=== PATIENT | female | born 1985 | race African-American/Black ===

== ENCOUNTER 2018-03-25 19:23 | Emergency (ER) | payer SELFPAY ==
[2018-03-25] MEDS: LIDOCAINE WITH 8.4% SOD BICARB 3 ML DISP.SYRIN. INJ ×2 (19:57→20:15)
== END 2018-03-25 20:39 | disposition home or self-care (01) ==
LOC: ER 19:23
DX: L02.412 Cutaneous abscess of left axilla (principal)
CPT/HCPCS: 10060; 99283

== ENCOUNTER 2018-05-18 14:00 | Emergency (ER) | payer OTHER ==
[~2018-05-18] VITALS: Ht 165.1 cm; Wt 115.2 kg
[~2018-05-18 14:00] MED LIST: CEPH500C PO; HYDR-971 PO; SULF1TAB24 PO
[2018-05-18 15:33] VITALS: BP 113/75
[2018-05-18] MEDS ORDERED: LIDOCAINE WITH 8.4% SOD BICARB 3 ML DISP.SYRIN. INJ ONE (15:45)
[2018-05-18] MEDS ORDERED: IBUPROFEN 800 MG TABLET. PO ONE (15:45)
[2018-05-18] MEDS ORDERED: HYDR-971 PO (16:01)
[2018-05-18] MEDS ORDERED: SULF1TAB24 PO (16:01)
[2018-05-18] MEDS ORDERED: IBUP-1007 PO (16:01)
--- NOTE | 2018-05-18 16:01 | PHYS DOC ---
Past Medical History Past Medical History: No Pertinent History Past Surgical History: Alcohol Use: None Drug Use: None Adult General Chief Complaint Chief Complaint: ABSCESS HPI HPI Patient is a 32 year old Female who presents with right axilla abscess 4 days. Patient denies any fever. Patient rates her pain a 7 out of 10 and states it is burning and aching. Review of Systems Review of Systems Constitutional: Denies fever or chills [] Eyes: Denies change in visual acuity, redness, or eye pain [] HENT: Denies nasal congestion or sore throat [] Respiratory: Denies cough or shortness of breath [] Cardiovascular: No additional information not addressed in HPI [] GI: Denies abdominal pain, nausea, vomiting, bloody stools or diarrhea [] : Denies dysuria or hematuria [] Musculoskeletal: Denies back pain or joint pain [] Integument: Denies rash or skin lesions. Right axilla abscess with burning and pain. [] Neurologic: Denies headache, focal weakness or sensory changes [] Endocrine: Denies polyuria or polydipsia [] All other systems were reviewed and found to be within normal limits, except as documented in this note. Current Medications Current Medications Current Medications Medications (Trade) Dose Ordered Sig/Angela Start Time Stop Time Status Last Admin Dose Admin Ibuprofen (Motrin) 800 mg 1X ONCE 05/18/18 15:45 05/18/18 15:46 DC 05/18/18 16:10 800 MG Lidocaine/Sodium Bicarbonate (Buffered Lidocaine 1%) 3 ml 1X ONCE 05/18/18 15:45 05/18/18 15:46 DC 05/18/18 16:10 3 ML Allergies Allergies Allergies Coded Allergies Type Severity Reaction Last Updated Verified No Known Drug Allergies 03/25/18 No Physical Exam Physical Exam Constitutional: Well developed, well nourished, no acute distress, non-toxic appearance. [] HENT: Normocephalic, atraumatic, bilateral external ears normal, oropharynx moist, no oral exudates, nose normal. [] Eyes: PERRLA, EOMI, conjunctiva normal, no discharge. [] Neck: Normal range of motion, no tenderness, supple, no stridor. [] Cardiovascular:Heart rate regular rhythm, no murmur [] Lungs & Thorax: Bilateral breath sounds clear to auscultation [] Abdomen: Bowel sounds normal, soft, no tenderness, no masses, no pulsatile masses. [] Skin: Warm, dry, Right nondraining, tender, erythemas, axilla abscess, no rash. [] Back: No tenderness, no CVA tenderness. [] Extremities: No tenderness, no cyanosis, no clubbing, ROM intact, no edema. [] Neurologic: Alert and oriented X 3, normal motor function, normal sensory function, no focal deficits noted. [] Psychologic: Affect normal, judgement normal, mood normal. [] Current Patient Data Vital Signs Vital Signs Date Time Temp Pulse Resp B/P (MAP) Pulse Ox O2 Delivery O2 Flow Rate FiO2 05/18/18 15:33 98.7 84 19 113/75 (88) 96 Room Air 98.7 EKG EKG [] Radiology/Procedures Radiology/Procedures [] Course & Med Decision Making Course & Med Decision Making Patient is a 32 year old Female who presents with a nondraining right axilla abscess 4 days. Patient denies any fever. Patient rates her pain a 7 out of 10 and states it is burning and aching. Patient has a quarter-sized elevated abscess that is not hot to touch but with some redness and tenderness to palpation. She is only been taking ibuprofen for pain. Patient states she has not yet taken anything for pain today. I offered the patient [place] for pain and she stated she does not like pain medications and states she would only like ibuprofen. Patient states that a couple months ago she was here for a left axilla abscess. It is hard for patient to raise her right arm due to pain in her axilla. Patient is afebrile. Patient's denies any nausea or vomiting or body aches. Patient denies any fevers at home. Patient alert and oriented. Patient is given 800 mg ibuprofen in the ED. Patient will be sent home with a prescription for Bactrim, [place] and ibuprofen. Patient is told she needs to follow up either with the primary care or back in the ED for a wound check within 48 hours. With I&D a large amount of Purulent fluid was drained. Patient tolerated well. Abscess Incision and Drainage with irrigation by me: Location: Right axilla Anesthesia: Local 1% Lidocaine Technique: Irrigated. Disrupted loculations w/ instrumentation Packing: None Complications: Neurovascularly intact post procedure 48 hour wound check. Scar minimization instructions given. ED Ultrasound: Abscess localized by me using concurrent ultrasound guidance and assessment of the anatomy. Real time image archived in the medical record confirms anatomy. Silvio Disclaimer Silvio Disclaimer This electronic medical record was generated, in whole or in part, using a voice recognition dictation system. Departure Departure Impression: Primary Impression: Abscess Disposition: HOME, SELF-CARE Condition: STABLE Referrals: NO PCP (PCP) Patient Instructions: Abscess, Abscess, Care After Additional Instructions: Follow up with PCP or the ED for wound check in 48 hours. Take Ibuprofen and Antibiotics as prescribed. Scripts Hydrocodone/Apap 5-325 (NORCO 5-325 TABLET) 1 Each Tablet 1 TAB PO PRN Q6HRS PRN for PAIN, #5 TAB 0 Refills Prov: NEIL FERRER CHAINSTITCH ELASTIC ATTACHER 05/18/18 Ibuprofen (IBUPROFEN) 600 Mg Tablet 600 MG PO PRN Q6HRS PRN for INFLAMMATION, #25 TAB Prov: NEIL FERRER CHAINSTITCH ELASTIC ATTACHER 05/18/18 Sulfamethoxazole/Trimethoprim (BACTRIM DS TABLET) 1 Each Tablet 1 TAB PO BID, #20 TAB Prov: NEIL FERRER CHAINSTITCH ELASTIC ATTACHER 05/18/18 NEIL FERRER CHAINSTITCH ELASTIC ATTACHER May 18, 2018 16:01
[2018-05-18] MEDS ORDERED: HYDROcodone/APAP 5/325MG 1 TAB TABLET PO ONE (16:45)
== END 2018-05-18 17:06 | disposition home or self-care (01) ==
LOC: ER 14:00
DX: L02.412 Cutaneous abscess of left axilla (principal)
CPT/HCPCS: 10061; 99284

== ENCOUNTER 2018-08-08 11:29 | Emergency (ER) | payer OTHER ==
[~2018-08-08] VITALS: Ht 165.1 cm; Wt 117.9 kg
[~2018-08-08 11:29] MED LIST changes: +HYDR-3164 PO; -HYDR-971 PO; +IBUP-1007 PO
[2018-08-08 11:57] LABS: BILIRUBIN,URINE NEGATIVE (NEG); CLARITY,URINE CLEAR; COLOR,URINE YELLOW; NITRITE,URINE NEGATIVE (NEG); PROTEIN,URINE NEGATIVE (NEG-TRACE)
[2018-08-08 12:05] LABS: U PREG PATIENT NEGATIVE (NEG)
--- NOTE | 2018-08-08 12:11 | PHYS DOC ---
Past Medical History Past Medical History: No Pertinent History Past Surgical History: Alcohol Use: None Drug Use: None Adult General Chief Complaint Chief Complaint: NAUSEA/VOMITING/DIARRHA HPI HPI Patient is a 33 year old female who presents with complaints of middle lower abdominal pain, nausea and vomiting starting yesterday. LMP was 06/18, unsure if she is . Denies fever, chills, urinary symptoms, diarrhea, flank pain, low back pain, vaginal discharge odor or itching. Denies previous abdominal surgeries. Review of Systems Review of Systems Constitutional: Denies fever or chills [] Eyes: Denies change in visual acuity, redness, or eye pain [] HENT: Denies nasal congestion or sore throat [] Respiratory: Denies cough or shortness of breath [] Cardiovascular: No additional information not addressed in HPI [] GI: Denies bloody stools or diarrhea [] : Denies dysuria or hematuria [] Musculoskeletal: Denies back pain or joint pain [] Integument: Denies rash or skin lesions [] Neurologic: Denies headache, focal weakness or sensory changes [] Endocrine: Denies polyuria or polydipsia [] All other systems were reviewed and found to be within normal limits, except as documented in this note. Current Medications Current Medications Current Medications Medications (Trade) Dose Ordered Sig/Angela Start Time Stop Time Status Last Admin Dose Admin Ondansetron HCl (Zofran) 4 mg 1X ONCE 08/08/18 13:15 08/08/18 13:16 DC 08/08/18 13:10 4 MG Sodium Chloride 1,000 ml @ 1,000 mls/hr 1X ONCE 08/08/18 12:15 08/08/18 13:14 DC 08/08/18 13:09 1,000 MLS/HR Allergies Allergies Allergies Coded Allergies Type Severity Reaction Last Updated Verified No Known Drug Allergies 03/25/18 No Physical Exam Physical Exam Constitutional: Well developed, well nourished, no acute distress, non-toxic appearance. [] HENT: Normocephalic, atraumatic, bilateral external ears normal, oropharynx moist, no oral exudates, nose normal. [] Eyes: PERRLA, EOMI, conjunctiva normal, no discharge. [] Neck: Normal range of motion, no tenderness, supple, no stridor. [] Cardiovascular:Heart rate regular rhythm, no murmur [] Lungs & Thorax: Bilateral breath sounds clear to auscultation [] Abdomen: Bowel sounds normal, soft, middle lower quad abdominal tenderness, no masses, no pulsatile masses. [] Skin: Warm, dry, no erythema, no rash. [] Back: No tenderness, no CVA tenderness. [] Extremities: No tenderness, no cyanosis, no clubbing, ROM intact, no edema. [] Neurologic: Alert and oriented X 3, normal motor function, normal sensory function, no focal deficits noted. [] Psychologic: Affect normal, judgement normal, mood normal. [] Current Patient Data Vital Signs Vital Signs Date Time Temp Pulse Resp B/P (MAP) Pulse Ox O2 Delivery O2 Flow Rate FiO2 08/08/18 12:00 98.9 100 18 111/57 (75) 99 Room Air 98.9 Lab Values Laboratory Tests Test 08/08/18 11:35 08/08/18 12:30 Urine Collection Type Unknown Urine Color Yellow Urine Clarity Clear Urine pH 6.0 Urine Specific [place] >=1.030 Urine Protein Negative mg/dL (NEG-TRACE) Urine Glucose (UA) Negative mg/dL (NEG) Urine Ketones (Stick) Negative mg/dL (NEG) Urine Blood Negative (NEG) Urine Nitrite Negative (NEG) Urine Bilirubin Negative (NEG) Urine Urobilinogen Dipstick 1.0 mg/dL (0.2 mg/dL) Urine Leukocyte Esterase Negative (NEG) Urine RBC Occ /HPF (0-2) Urine WBC Occ /HPF (0-4) Urine Squamous Epithelial Cells Occ /LPF Urine Bacteria 0 /HPF (0-FEW) Urine Mucus Slight /LPF Urine Test Negative (NEG) White Blood Count 6.7 x10^3/uL (4.0-11.0) Red Blood Count 4.16 x10^6/uL (3.50-5.40) Hemoglobin 13.0 g/dL (12.0-15.5) Hematocrit 38.5 % (36.0-47.0) Mean Corpuscular Volume 93 fL (79-100) Mean Corpuscular Hemoglobin 31 pg (25-35) Mean Corpuscular Hemoglobin Concent 34 g/dL (31-37) Red Cell Distribution Width 14.0 % (11.5-14.5) Platelet Count 211 x10^3/uL (140-400) Neutrophils (%) (Auto) 67 % (31-73) Lymphocytes (%) (Auto) 25 % (24-48) Monocytes (%) (Auto) 5 % (0-9) Eosinophils (%) (Auto) 2 % (0-3) Basophils (%) (Auto) 1 % (0-3) Neutrophils # (Auto) 4.5 x10^3uL (1.8-7.7) Lymphocytes # (Auto) 1.7 x10^3/uL (1.0-4.8) Monocytes # (Auto) 0.3 x10^3/uL (0.0-1.1) Eosinophils # (Auto) 0.1 x10^3/uL (0.0-0.7) Basophils # (Auto) 0.1 x10^3/uL (0.0-0.2) Sodium Level 141 mmol/L (136-145) Potassium Level 3.8 mmol/L (3.5-5.1) Chloride Level 106 mmol/L (98-107) Carbon Dioxide Level 25 mmol/L (21-32) Anion Gap 10 (6-14) Blood Urea Nitrogen 14 mg/dL (7-20) Creatinine 0.9 mg/dL (0.6-1.0) Estimated GFR (Cockcroft-Gault) 86.2 BUN/Creatinine Ratio 16 (6-20) Glucose Level 95 mg/dL (70-99) Calcium Level 9.0 mg/dL (8.5-10.1) Total Bilirubin 0.2 mg/dL (0.2-1.0) Aspartate Amino Transferase (AST) 17 U/L (15-37) Alanine Aminotransferase (ALT) 34 U/L (14-59) Alkaline Phosphatase 68 U/L (46-116) Total Protein 7.6 g/dL (6.4-8.2) Albumin 3.4 g/dL (3.4-5.0) Albumin/Globulin Ratio 0.8 (1.0-1.7) L Laboratory Tests 08/08/18 12:30 Laboratory Tests 08/08/18 12:30 EKG EKG [] Radiology/Procedures Radiology/Procedures [] Course & Med Decision Making Course & Med Decision Making Pertinent Labs and Imaging studies reviewed. (See chart for details) Reviewed negative physical examination and lab results with pt. She is instructed to use Zofran as needed for nausea, increase water intake. Follow up with PCP in 3-5 days if not feeling better. Silvio Disclaimer Andreaon Disclaimer This electronic medical record was generated, in whole or in part, using a voice recognition dictation system. Departure Departure Impression: Primary Impression: Gastroenteritis Disposition: 01 HOME, SELF-CARE Condition: STABLE Referrals: NO PCP (PCP) Patient Instructions: Viral Gastroenteritis, Abkl-to-Uruk Additional Instructions: Use zofran as needed for nausea Increase water intake [place] diet, advance as tolerated Follow up with PCP in 3-5 days if not feeling better Scripts Ondansetron Hcl (ZOFRAN) 4 Mg Tablet 1 TAB PO Q8HRS, #15 TAB Prov: NATALIO BUCK NP 08/08/18 NATALIO BUCK NP Aug 08, 2018 12:11
[2018-08-08] MEDS ORDERED: IV NORMAL SALINE 1000ML BAG 1,000 ML IV ONE (12:15)
[2018-08-08 12:17] LABS: BACTERIA,URINE 0 /HPF (0-FEW); RBC,URINE OCC /HPF (0-2); SQUAMOUS EPITHELIAL CELL,UR OCC /LPF; WBC,URINE OCC /HPF (0-4)
[2018-08-08 12:40] LABS: BASO # 0.1 x10^3/uL (0.0-0.2); BASO % 1 % (0-3); EOS # 0.1 x10^3/uL (0.0-0.7); EOS % 2 % (0-3); HEMATOCRIT 38.5 % (36.0-47.0); LYMPH # 1.7 x10^3/uL (1.0-4.8); LYMPH % 25 % (24-48); MEAN CORPUSCULAR HEMOGLOBIN 31 pg (25-35); MEAN CORPUSCULAR HGB CONC 34 g/dL (31-37); MEAN CORPUSCULAR VOLUME 93 fL (79-100); MONO # 0.3 x10^3/uL (0.0-1.1); MONO % 5 % (0-9); NEUT # 4.5 x10^3uL (1.8-7.7); NEUT % 67 % (31-73); PLATELET COUNT 211 x10^3/uL (140-400); RED BLOOD COUNT 4.16 x10^6/uL (3.50-5.40); WHITE BLOOD COUNT 6.7 x10^3/uL (4.0-11.0)
[2018-08-08 12:55] LABS: CREATININE 0.9 mg/dL (0.6-1.0); GFR 86.2; POTASSIUM 3.8 mmol/L (3.5-5.1)
[2018-08-08 13:00] LABS: ALBUMIN 3.4 g/dL (3.4-5.0); ALBUMIN/GLOBULIN RATIO 0.8 (1.0-1.7); TOTAL BILIRUBIN 0.2 mg/dL (0.2-1.0); TOTAL PROTEIN 7.6 g/dL (6.4-8.2)
[2018-08-08] MEDS ORDERED: ONDANSETRON PF 4 MG/2 ML VIAL. IV ONE (13:15)
[2018-08-08] MEDS ORDERED: ONDA4TAB7 PO (14:07)
[2018-08-08 14:30] VITALS: BP 108/66
== END 2018-08-08 14:41 | disposition home or self-care (01) ==
LOC: ER 11:29
DX: K52.9 Noninfective gastroenteritis and colitis, unspecified (principal)
CPT/HCPCS: 36415; 80053; 81001; 81025; 85025; 96361; 96374; 99283; J2405; J7030

== ENCOUNTER 2019-01-08 14:43 | Emergency (ER) | payer OTHER ==
[~2019-01-08] VITALS: Ht 165.1 cm; Wt 113.9 kg
[~2019-01-08 14:43] MED LIST changes: +ONDA4TAB7 PO
[2019-01-08 15:30] VITALS: BP 146/90
[2019-01-08] MEDS ORDERED: PERM60CR12 TP (15:33)
--- NOTE | 2019-01-08 15:33 | PHYS DOC ---
Past Medical History Past Medical History: No Pertinent History (JARRETT JAMES APRN) Past Surgical History: (JARRETT JAMES APRN) Alcohol Use: None Drug Use: None (JARRETT JAMES APRN) Adult General Chief Complaint Chief Complaint: ITCHING HPI HPI Patient is a 33 year old female presented to the ER at [facility]. The patient states that her son was diagnosed with scabies 2 weeks ago. The patient states that she treated her son but he still been itching. Rates her itching 10 out of 10. Her itching started 3 days ago. (JARRETT JAMES APRN) Review of Systems Review of Systems Constitutional: Denies fever or chills [] Eyes: Denies change in visual acuity, redness, or eye pain [] HENT: Denies nasal congestion or sore throat [] Respiratory: Denies cough or shortness of breath [] Cardiovascular: No additional information not addressed in HPI [] GI: Denies abdominal pain, nausea, vomiting, bloody stools or diarrhea [] : Denies dysuria or hematuria [] Musculoskeletal: Denies back pain or joint pain [] Integument: Reports diffuse body wide rash and itching. Neurologic: Denies headache, focal weakness or sensory changes [] Endocrine: Denies polyuria or polydipsia [] Complete systems were reviewed and found to be within normal limits, except as documented in this note. (JARRETT JAMES APRN) Allergies Allergies Allergies Coded Allergies Type Severity Reaction Last Updated Verified No Known Drug Allergies 03/25/18 No (JARRETT NICHOLS DO) Physical Exam Physical Exam Constitutional: Well developed, well nourished, no acute distress, non-toxic appearance. [] HENT: Normocephalic, atraumatic, bilateral external ears normal, oropharynx moist, no oral exudates, nose normal. [] Eyes: PERRLA, EOMI, conjunctiva normal, no discharge. [] Neck: Normal range of motion, no tenderness, supple, no stridor. [] Cardiovascular:Heart rate regular rhythm, no murmur [] Lungs & Thorax: Bilateral breath sounds clear to auscultation [] Abdomen: Bowel sounds normal, soft, no tenderness, no masses, no pulsatile masses. [] Skin: linear rash, scratches from itching. Rash is diffuse and in the abdominal fold, breast, bilateral shoulder, and legs. Back: No tenderness, no CVA tenderness. [] Extremities: No tenderness, no cyanosis, no clubbing, ROM intact, no edema. [] Neurologic: Alert and oriented X 3, normal motor function, normal sensory function, no focal deficits noted. [] Psychologic: Affect normal, judgement normal, mood normal. [] (JARRETT JAMES APRN) Current Patient Data Vital Signs Vital Signs Date Time Temp Pulse Resp B/P (MAP) Pulse Ox O2 Delivery O2 Flow Rate FiO2 01/08/19 15:30 98.5 92 16 146/90 (108) 98 Room Air 98.5 (JARRETT NICHOLS DO) EKG EKG [] (JARRETT JAMES APRN) Radiology/Procedures Radiology/Procedures [] (JARRETT JAMES APRN) Course & Med Decision Making Course & Med Decision Making Pertinent Labs and Imaging studies reviewed. (See chart for details) Appears to have scabies. Will treat. (JARRETT JAMES APRN) Dragon Disclaimer Dragon Disclaimer This electronic medical record was generated, in whole or in part, using a voice recognition dictation system. (JARRETT JAMES APRN) Departure Departure Impression: Primary Impression: Scabies Disposition: HOME, SELF-CARE Condition: STABLE Referrals: NO PCP (PCP) Patient Instructions: Scabies Additional Instructions: Please follow up with your doctor as needed. Apply thin layer to ALL skin surfaces from neck to toes for 8-14 hours then wash off, repeat in 1 week avoid contact with eyes and mucous membranes. Scripts Permethrin (PERMETHRIN) 60 Gm Cream..g. 1 SCOTTY TP ONCE, #60 GM 1 Refill Prov: JARRETT JAMES APRN 01/08/19 Attending Signature Attending Signature I have reviewed the PA/RUBY [employer] SOFTWARE DEVELOPER's note and plan of care. I was available for consultation as needed during the patient's visit in the emergency department. I agree with the clinical impression, plan, and disposition. (JARRETT NICHOLS DO) JARRETT JAMES APRN January 08, 2019 15:33 JARRETT NICHOLS DO January 12, 2019 05:01
== END 2019-01-08 15:54 | disposition home or self-care (01) ==
LOC: ER 14:43
DX: B86 Scabies (principal); Z98.890 Other specified postprocedural states
CPT/HCPCS: 99282

== ENCOUNTER 2020-05-07 03:29 | Emergency (ER) | payer OTHER ==
[~2020-05-07] VITALS: Ht 165.1 cm; Wt 111.8 kg
[~2020-05-07 03:29] MED LIST changes: +PERM60CR12 TP
[2020-05-07 03:47] LABS: BILIRUBIN,URINE NEGATIVE (NEG); CLARITY,URINE CLEAR; COLOR,URINE YELLOW; NITRITE,URINE NEGATIVE (NEG); PROTEIN,URINE 30 mg/dL (NEG-TRACE); UROBILINOGEN,URINE 0.2 mg/dL (0.2 mg/dL)
[2020-05-07 04:07] LABS: BACTERIA,URINE MOD /HPF (0-FEW); SQUAMOUS EPITHELIAL CELL,UR FEW /LPF; WBC,URINE TNTC /HPF (0-4)
[2020-05-07] MEDS ORDERED: CEPH-264 PO (04:19)
--- NOTE | 2020-05-07 04:25 | PHYS DOC ---
Past Medical History Past Medical History: No Pertinent History Past Surgical History: Smoking Status: Never Smoker Alcohol Use: Rarely Drug Use: None General Adult EDM: Chief Complaint: PAIN ON URINATION HPI: HPI: Patient is a 34-year-old previously healthy female who presents to the emergency room complaining of urinary frequency and dysuria for the last 2 or 3 days. She has a small amount of white vaginal discharge. She denies any pelvic pain. She does not have any nausea or vomiting. She is concerned about a urinary tract infection or sexually transmitted disease. Review of Systems: Review of Systems: General: Denies fever, chills, sweats, fatigue Eyes: Denies drainage, blurred vision, eye redness HENT: Denies rhinorrhea, sore throat, earache Respiratory: Denies cough, shortness of breath, wheezing Cardiac: Denies edema, palpitations, chest pain GI: Denies abdominal pain, Nausea, vomiting MSK: Denies back pain, neck pain Skin: Denies rash, jaundice Neuro: Denies headache, dizziness Psychiatric: Denies SI/HI Heart Score: Risk Factors: Risk Factors: DM, Current or recent (<one month) smoker, HTN, HLP, family history of CAD, obesity. Risk Scores: Score 0 - 3: 2.5% MACE over next 6 weeks - Discharge Home Score 4 - 6: 20.3% MACE over next 6 weeks - Admit for Clinical Observation Score 7 - 10: 72.7% MACE over next 6 weeks - Early Invasive Strategies Allergies: Allergies: Allergies Coded Allergies Type Severity Reaction Last Updated Verified No Known Drug Allergies 03/25/18 No Physical Exam: PE: Constitutional: Well developed, well nourished, no acute distress, non-toxic appearance. HENT: Normocephalic, atraumatic, bilateral external ears normal, nose normal. Eyes: PERRLA, EOMI, conjunctiva normal, no discharge. Neck: Normal range of motion, no stridor. Cardiovascular: Heart rate regular rhythm Lungs & Thorax: Respirations even and unlabored, no retractions, no respiratory distress Pelvic Exam: Sales Representative Graphic Art present Abdomen: Nontender, soft External Genitalia: Normal Skin Speculum: Normal vaginal mucosa, normal cervical discharge Bimanual: No adnexal masses or tenderness, No CMT Skin: Warm, dry, no erythema, no rash. Back: No tenderness Extremities: No cyanosis, ROM intact, no edema. Neurologic: Alert and oriented X 3, no focal deficits noted. Psychologic: Affect normal, judgement normal, mood normal. Current Patient Data: Labs: Laboratory Tests Test 05/07/20 03:32 05/07/20 03:43 Urine Collection Type Void Urine Color Yellow Urine Clarity Clear Urine pH 6.0 (<5.0-8.0) Urine Specific [place] 1.020 (1.000-1.030) Urine Protein 30 mg/dL (NEG-TRACE) Urine Glucose (UA) Negative mg/dL (NEG) Urine Ketones (Stick) Negative mg/dL (NEG) Urine Blood Trace (NEG) Urine Nitrite Negative (NEG) Urine Bilirubin Negative (NEG) Urine Urobilinogen Dipstick 0.2 mg/dL (0.2 mg/dL) Urine Leukocyte Esterase Large (NEG) Urine RBC 3-5 /HPF (0-2) Urine WBC Tntc /HPF (0-4) Urine Squamous Epithelial Cells Few /LPF Urine Bacteria Mod /HPF (0-FEW) POC Urine HCG, Qualitative Hcg negative (Negative) Microbiology 05/07/20 Wet Prep - Final, Complete Vital Signs: Vital Signs Date Time Temp Pulse Resp B/P (MAP) Pulse Ox O2 Delivery O2 Flow Rate FiO2 05/07/20 03:33 98.5 96 18 107/71 (83) 98 Room Air 98.5 EKG: EKG: [] Radiology/Procedures: Radiology/Procedures: [] Course & Med Decision Making: Course & Med Decision Making Pertinent Labs and Imaging studies reviewed. (See chart for details) Patient is a 34-year-old female who presents to the emergency room complaining of dysuria and urinary frequency. She would like to be checked for sexually transmitted diseases any UTI. Pelvic exam was done patient is a small amount of normal appearing discharge. There is no signs of cervicitis at this time. She will be treated empirically for sexually transmitted diseases and the test will be sent. UA suggestive of UTI. Patient will be treated with Keflex. Wet mount shows trichomonas and bacterial vaginosis. Patient will be treated with Flagyl. Patient's test results and vitals while in the ED were fully reviewed and discussed with the patient. Patient is stable and at this time does not need admission to the hospital. We have discussed strict return precautions and the importance of following up with their Primary Care Physician. Patient stated understanding and was given an opportunity to ask any questions. Patient is in agreement with plan. Dragon Disclaimer: Dragon Disclaimer: This electronic medical record was generated, in whole or in part, using a voice recognition dictation system. Departure Departure Impression: Primary Impression: Dysuria Additional Impression: UTI (urinary tract infection) Disposition: HOME, SELF-CARE Condition: STABLE Referrals: NO PCP (PCP) Patient Instructions: Sexually Transmitted Disease, Urinary Tract Infection Scripts Metronidazole (FLAGYL) 500 Mg Tablet 1 TAB PO BID, #14 TAB Prov: JUWAN QIU MD 05/07/20 Cephalexin (KEFLEX) 500 Mg Capsule 1 CAP PO Q12HR for 10 Days, #20 CAP Prov: JUWAN QIU MD 05/07/20 Justicifation of Admission Dx: Justifications for Admission: Justification of Admission Dx: N/A JUWAN QIU MD May 07, 2020 04:25
[2020-05-07] MEDS ORDERED: cefTRIAXone IM 250 MG VIAL IM ONE (04:30)
[2020-05-07] MEDS ORDERED: AZITHROMYCIN 250 MG TABLET. PO ONE (04:30)
[2020-05-07] MEDS ORDERED: ONDANSETRON ODT 4 MG TAB.RAPDIS. PO ONE (04:30)
[2020-05-07] MEDS ORDERED: METR500T PO (04:36)
[2020-05-07 04:50] VITALS: BP 115/65
[2020-05-08 22:08] LABS: GC PROBE Negative (Negative)
== END 2020-05-07 04:57 | disposition home or self-care (01) ==
LOC: ER 03:29
DX: N39.0 Urinary tract infection, site not specified (principal); R30.0 Dysuria; Z98.890 Other specified postprocedural states
CPT/HCPCS: 81001; 81025; 87491; 87591; 96372; 99284; J0696; Q0111

== ENCOUNTER 2020-05-16 14:29 | Emergency (ER) | payer OTHER ==
[~2020-05-16 14:29] MED LIST changes: +CEPH-264 PO; +METR500T PO
[2020-05-16] MEDS ORDERED: METR500T PO (14:59)
[2020-05-16] MEDS ORDERED: CEPH-264 PO (14:59)
== END 2020-05-16 15:01 | disposition left against medical advice (07) ==
LOC: ER 14:29
DX: Z76.0 Encounter for issue of repeat prescription (principal); Z53.21 Procedure and treatment not carried out due to patient leaving prior to being seen by health care provider

== ENCOUNTER 2020-08-04 13:44 | Emergency (ER) | payer OTHER ==
[~2020-08-04] VITALS: Ht 165.1 cm; Wt 245.0 kg
[2020-08-04 15:11] VITALS: BP 118/69
--- NOTE | 2020-08-04 15:26 | ED.ADGEN ---
Past Medical History Past Medical History: No Pertinent History Past Surgical History: Smoking Status: Never Smoker Alcohol Use: Rarely Drug Use: None General Adult EDM: Chief Complaint: VAGINAL PROBLEM HPI: HPI: Patient is a 35 year old AA female who presents to the emergency department with complaints of irregular vaginal discharge and vaginal irritation has been ongoing for over a month. Patient states that today she noticed an abnormal smell to the discharge. She denies any concerns of a sexually transmitted infection. Patient denies any abdominal pain, nausea, vomiting, diarrhea, fever, cough, dysuria, hematuria, or pelvic pain. She currently denies any pain. Patient states she tried using [id number] Monistat with no relief of her symptoms. Her last dose was a week ago. Review of Systems: Review of Systems: Complete ROS is negative unless otherwise noted in HPI. Allergies: Allergies: Allergies Coded Allergies Type Severity Reaction Last Updated Verified No Known Drug Allergies 03/25/18 No Physical Exam: PE: See Above Constitutional: Well developed, well nourished, no acute distress, non-toxic appearance. HENT: Normocephalic, atraumatic, bilateral external ears normal, nose normal, obese. Eyes: PERRLA, EOMI, conjunctiva normal, no discharge. Neck: Normal range of motion, no stridor. Cardiovascular: Heart rate regular rhythm Lungs & Thorax: Respirations even and unlabored, no retractions, no respiratory distress Pelvic Exam: It Business Analyst present Nasra RN Abdomen: Nontender, soft External Genitalia: Normal Skin Speculum: Normal vaginal mucosa, normal cervical discharge, thick white discharge present in vaginal vault Bimanual: No adnexal masses or tenderness, No CMT Skin: Warm, dry, no erythema, no rash. Extremities: No cyanosis, ROM intact, no edema. Neurologic: Alert and oriented X 3, no focal deficits noted. Psychologic: Affect normal, judgement normal, mood normal. Current Patient Data: Labs: Laboratory Tests Test 08/04/20 15:20 08/04/20 15:26 Urine Collection Type Unknown Urine Color Yellow Urine Clarity Cloudy Urine pH 7.5 (<5.0-8.0) Urine Specific [place] 1.015 (1.000-1.030) Urine Protein Negative mg/dL (NEG-TRACE) Urine Glucose (UA) Negative mg/dL (NEG) Urine Ketones (Stick) Negative mg/dL (NEG) Urine Blood Negative (NEG) Urine Nitrite Negative (NEG) Urine Bilirubin Negative (NEG) Urine Urobilinogen Dipstick 0.2 mg/dL (0.2 mg/dL) Urine Leukocyte Esterase Negative (NEG) Urine RBC 0 /HPF (0-2) Urine WBC 0 /HPF (0-4) Urine Bacteria 0 /HPF (0-FEW) POC Urine HCG, Qualitative Hcg negative (Negative) Microbiology 08/04/20 Wet Prep - Final, Complete Laboratory Tests Test 08/04/20 15:20 08/04/20 15:26 Urine Collection Type Unknown Urine Color Yellow Urine Clarity Cloudy Urine pH 7.5 (<5.0-8.0) Urine Specific [place] 1.015 (1.000-1.030) Urine Protein Negative mg/dL (NEG-TRACE) Urine Glucose (UA) Negative mg/dL (NEG) Urine Ketones (Stick) Negative mg/dL (NEG) Urine Blood Negative (NEG) Urine Nitrite Negative (NEG) Urine Bilirubin Negative (NEG) Urine Urobilinogen Dipstick 0.2 mg/dL (0.2 mg/dL) Urine Leukocyte Esterase Negative (NEG) Urine RBC 0 /HPF (0-2) Urine WBC 0 /HPF (0-4) Urine Bacteria 0 /HPF (0-FEW) POC Urine HCG, Qualitative Hcg negative (Negative) Microbiology 08/04/20 Wet Prep - Final, Complete Vital Signs: Vital Signs Date Time Temp Pulse Resp B/P (MAP) Pulse Ox O2 Delivery O2 Flow Rate FiO2 08/04/20 15:11 98.4 75 16 118/69 (85) 98 98.4 08/04/20 15:00 Room Air EKG: EKG: [] Heart Score: Risk Factors: Risk Factors: DM, Current or recent (<one month) smoker, HTN, HLP, family history of CAD, obesity. Risk Scores: Score 0 - 3: 2.5% MACE over next 6 weeks - Discharge Home Score 4 - 6: 20.3% MACE over next 6 weeks - Admit for Clinical Observation Score 7 - 10: 72.7% MACE over next 6 weeks - Early Invasive Strategies Radiology/Procedures: Radiology/Procedures: [] Course & Med Decision Making: Course & Med Decision Making Pertinent Labs and Imaging studies reviewed. (See chart for details) 35-year-old female presents emergency department with concerns of irregular vaginal discharge for months. Wet mount was not concerning for bacterial vaginosis, vaginal yeast infection, or trichomoniasis. UA was unremarkable. UCG negative. The patient declined treatment for gonorrhea and chlamydia. Gonorrhea and Chlamydia tests are pending. Provided the patient with Dr. Watts's information for further evaluation and treatment of this ongoing problem. [] Dragon Disclaimer: Dragon Disclaimer: This electronic medical record was generated, in whole or in part, using a voice recognition dictation system. Departure Departure Impression: Primary Impression: Vaginal discharge Disposition: 01 DC HOME SELF CARE/HOMELESS Condition: STABLE Referrals: SALOMÓN WATTS Jr, MD Patient Instructions: Vaginitis, [id number] Additional Instructions: There was no yeast or evidence of bacterial vaginosis in your culture results today. The gonorrhea and chlamydia results are pending tried, follow-up with Dr. Watts for further evaluation and treatment of ongoing vaginal discharge. Return to the ER if symptoms worsen or pain develops. RAAD MOLINA STONECUTTER ASSISTANT Aug 04, 2020 15:26
[2020-08-04 15:32] LABS: BILIRUBIN,URINE NEGATIVE (NEG); CLARITY,URINE CLOUDY; COLOR,URINE YELLOW; NITRITE,URINE NEGATIVE (NEG); PH,URINE 7.5 (<5.0-8.0); PROTEIN,URINE NEGATIVE (NEG-TRACE); UROBILINOGEN,URINE 0.2 mg/dL (0.2 mg/dL)
[2020-08-04 15:45] LABS: BACTERIA,URINE 0 /HPF (0-FEW); RBC,URINE 0 /HPF (0-2); WBC,URINE 0 /HPF (0-4)
== END 2020-08-04 17:20 | disposition home or self-care (01) ==
LOC: ER 13:44
DX: N89.8 Other specified noninflammatory disorders of vagina (principal); Z98.890 Other specified postprocedural states
CPT/HCPCS: 81001; 81025; 87491; 87591; 99284; Q0111

== ENCOUNTER 2020-11-24 09:06 | Emergency (ER) | payer OTHER ==
[~2020-11-24] VITALS: Ht 165.1 cm; Wt 97.0 kg
[2020-11-24] MEDS: HYDROmorphone 2 MG/ML VIAL IVP ONE ×2 (09:24→10:31)
[2020-11-24 09:32] LABS: BASO % 1 % (0-3); EOS # 0.1 x10^3/uL (0.0-0.7); EOS % 1 % (0-3); HEMATOCRIT 35.9 % (36.0-47.0); HEMOGLOBIN 12.1 g/dL (12.0-15.5); LYMPH # 3.3 x10^3/uL (1.0-4.8); LYMPH % 53 % (24-48); MEAN CORPUSCULAR HEMOGLOBIN 31 pg (25-35); MEAN CORPUSCULAR HGB CONC 34 g/dL (31-37); MEAN CORPUSCULAR VOLUME 92 fL (79-100); MONO # 0.4 x10^3/uL (0.0-1.1); MONO % 6 % (0-9); NEUT # 2.5 x10^3/uL (1.8-7.7); NEUT % 39 % (31-73); PLATELET COUNT 256 x10^3/uL (140-400); RED BLOOD COUNT 3.91 x10^6/uL (3.50-5.40); RED CELL DISTRIBUTION WIDTH 13.6 % (11.5-14.5); WHITE BLOOD COUNT 6.3 x10^3/uL (4.0-11.0)
[2020-11-24] MEDS: IV RINGERS,LACTATED 500ML 500 ML IV ONE (09:35)
[2020-11-24 09:40] LABS: CALCIUM 8.7 mg/dL (8.5-10.1); CREATININE 0.8 mg/dL (0.6-1.0); GFR 97.7; POTASSIUM 3.8 mmol/L (3.5-5.1)
[2020-11-24 09:45] VITALS: BP 151/77
[2020-11-24 09:45] LABS: ALBUMIN 3.7 g/dL (3.4-5.0); TOTAL BILIRUBIN 0.3 mg/dL (0.2-1.0); TOTAL PROTEIN 7.5 g/dL (6.4-8.2)
[2020-11-24 09:46] LABS: PREG TEST PT QUAL NEGATIVE (NEG)
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
[2020-11-24] MEDS: DIPH,PERTUSS(ACELL),TET VAC/PF 0.5 ML SYRINGE. VAX IM ONE (09:59)
== END 2020-11-24 10:39 | disposition short-term general hospital (02) ==
LOC: ER 09:06
DX: T21.11XA Burn of first degree of chest wall, initial encounter (principal); T20.10XA Burn of first degree of head, face, and neck, unspecified site, initial encounter; T20.17XA Burn of first degree of neck, initial encounter; Z98.890 Other specified postprocedural states; X12.XXXA Contact with other hot fluids, initial encounter; Y93.89 Activity, other specified; Y92.89 Other specified places as the place of occurrence of the external cause; Y99.8 Other external cause status
CPT/HCPCS: 36415; 80053; 84703; 85025; 90471; 90715; 96361; 96374; 96376; 99285; J1170; J7120

== ENCOUNTER 2021-03-07 22:11 | Emergency (ER) | payer OTHER | END 2021-03-07 23:01 | disposition left against medical advice (07) | LOC: ER 22:11 | DX: R51.9 Headache, unspecified (principal); Z53.21 Procedure and treatment not carried out due to patient leaving prior to being seen by health care provider | CPT/HCPCS: 81025 ==

== ENCOUNTER 2021-07-11 00:24 | Emergency (ER) | payer OTHER ==
[~2021-07-11] VITALS: Ht 165.1 cm; Wt 83.1 kg
--- NOTE | 2021-07-11 01:17 | PHYS DOC ---
Past Medical History Past Medical History: No Pertinent History Past Surgical History: Smoking Status: Never Smoker Alcohol Use: Rarely Drug Use: None General Adult EDM: Chief Complaint: FLU SYMPTOM HPI: HPI: Patient is a 36 year old female presents for covid test. Mother presents to ER with son. Son has uri s/s with eye drainage. She is requesting covid test for son and herself. Review of Systems: Review of Systems: Constitutional: Denies fever or chills. [] Eyes: Denies change in visual acuity. [] HENT: Denies nasal congestion or sore throat. [] Respiratory: Denies cough or shortness of breath. [] Cardiovascular: Denies chest pain or edema. [] GI: Denies abdominal pain, nausea, vomiting, bloody stools or diarrhea. [] : Denies dysuria. [] Musculoskeletal: Denies back pain or joint pain. [] Integument: Denies rash. [] Neurologic: Denies headache, focal weakness or sensory changes. [] Endocrine: Denies polyuria or polydipsia. [] Lymphatic: Denies swollen glands. [] Psychiatric: Denies depression or anxiety. [] Heart Score: C/O Chest Pain: N/A Risk Factors: Risk Factors: DM, Current or recent (<one month) smoker, HTN, HLP, family history of CAD, obesity. Risk Scores: Score 0 - 3: 2.5% MACE over next 6 weeks - Discharge Home Score 4 - 6: 20.3% MACE over next 6 weeks - Admit for Clinical Observation Score 7 - 10: 72.7% MACE over next 6 weeks - Early Invasive Strategies Allergies: Allergies: Allergies Coded Allergies Type Severity Reaction Last Updated Verified No Known Drug Allergies 03/25/18 No Physical Exam: PE: Constitutional: Well developed, well nourished, no acute distress, non-toxic appearance. [] HENT: Normocephalic, atraumatic, bilateral external ears normal, oropharynx moist, no oral exudates, nose normal. [] Eyes: PERRLA, EOMI, conjunctiva normal, no discharge. [] Neck: Normal range of motion, no tenderness, supple, no stridor. [] Cardiovascular:Heart rate regular rhythm, no murmur [] Lungs & Thorax: Bilateral breath sounds clear to auscultation [] Abdomen: Bowel sounds normal, soft, no tenderness, no masses, no pulsatile m asses. [] Skin: Warm, dry, no erythema, no rash. [] Back: No tenderness, no CVA tenderness. [] Extremities: No tenderness, no cyanosis, no clubbing, ROM intact, no edema. [] Neurologic: Alert and oriented X 3, normal motor function, normal sensory function, no focal deficits noted. [] Psychologic: Affect normal, judgement normal, mood normal. [] Current Patient Data: Vital Signs: Vital Signs Date Time Temp Pulse Resp B/P (MAP) Pulse Ox O2 Delivery O2 Flow Rate FiO2 07/11/21 00:42 98.6 87 18 124/76 (92) 96 Room Air 98.6 EKG: EKG: [] Radiology/Procedures: Radiology/Procedures: [] Course & Med Decision Making: Course & Med Decision Making Pertinent Labs and Imaging studies reviewed. (See chart for details) [] Dragon Disclaimer: [employer] Disclaimer: This electronic medical record was generated, in whole or in part, using a voice recognition dictation system. Departure Departure Impression: Primary Impression: URI (upper respiratory infection) Disposition: HOME / SELF CARE / HOMELESS Condition: STABLE Referrals: NO PCP (PCP) Patient Instructions: Upper Respiratory Infection, Adult Additional Instructions: You have been tested for or diagnosed with COVID-19. It is an infection caused by a new type of coronavirus. COVID-19 will cause cold-like or mild flu symptoms in most. It can cause more severe symptoms like problems breathing in some. There is no treatment for COVID-19. The body will clear the infection over time. Self-care will help to ease discomfort. Steps to Take: Self-Care Rest as needed. Healthy habits may help you feel better. Steps include: Choose healthy foods including fruits and vegetables. Drink water throughout the day. Get plenty of sleep each night. If you smoke, try to quit. It may ease breathing. Avoid alcohol. Keep Others Healthy The virus can spread to others. Droplets are released every time you sneeze or cough. The droplets can get into the mouth, nose, or eyes of people near you and lead to infection. To lower the chances of spreading COVID-19 to others: Stay at home until your doctor has said it is safe to leave. If you tested positive this will mean staying isolated until both of the following are true: At least 7 days have passed since the start of illness. You are free of fever for at least 72 hours without the use of medicine. During this time: - Avoid public areas, events, or transportation. Do not return to work or school until your doctor has said it is safe to do so. - Call ahead if you need to go to a medical center. Let them know you may have COVID-19. It will help them guide you where to go. They may also ask you to wear a facemask when you come to the office. - If you call for emergency medical services, let them know you may have COVID- 19. While at home: - Try to avoid close contact with others. Stay about 6 feet away. - If possible, spend most of your time in a separate room from others. - Use a face mask if you will be in close contact with others such as sharing a room or vehicle. - Have someone wipe down common surfaces in the home. Use household metallurgy laboratory technician every day on areas like doorknobs, counters, or sinks. - Cough or sneeze into a tissue. Throw the tissue away right after use. If a tissue is not available, cough or sneeze into your elbow. - Wash your hands often. Wash them after sneezing or coughing. Use soap and water and wash for at least 20 seconds. Alcohol based hand rug cleaner can be used if soap and water is not available. - Do not prepare food for others. Avoid sharing personal items like forks, spoons, or toothbrushes. - Avoid close contact with pets while you are sick. There is no evidence of the virus passing to pets. This is a safety step until more is known about this virus. Isolation can be frustrating. Social interaction can help. Keep in touch with friends and family through phone and tech options. You can still interact with others in your home, just keep a safe distance of about 6 feet. Follow-up: Your doctors office will check in with you to see if there are any changes in your health. You may be asked to keep track of symptoms to share with them. They will also let you know when you are clear to be in public again. Problems to Look Out For: Contact your doctor if your recovery is not going as you expect. Get emergency care if you have problems such as: - Trouble breathing - Nonstop chest pain or pressure - Changes in awareness, confusion, or problems waking - Lips or face have bluish color - Worsening of symptoms If you think you have an emergency, call for emergency medical services right away. As taken from [facility] SAMMIE SHETTY I DO Jul 11, 2021 01:17
--- NOTE | 2021-07-11 16:07 | NUR ---
IP: Informed pt of negative covid test. Pt verbalized understanding.
== END 2021-07-11 01:30 | disposition home or self-care (01) ==
LOC: ER 00:24
DX: J06.9 Acute upper respiratory infection, unspecified (principal); Z20.822 Contact with and (suspected) exposure to COVID-19
CPT/HCPCS: 99283; U0003; U0005

== ENCOUNTER 2021-07-20 03:35 | Emergency (ER) | payer OTHER ==
[~2021-07-20] VITALS: Ht 170.2 cm; Wt 83.0 kg
[2021-07-20 03:40] VITALS: BP 124/76
--- NOTE | 2021-07-20 04:28 | ED.ADGEN ---
Past Medical History Past Medical History: No Pertinent History Past Surgical History: Smoking Status: Never Smoker Alcohol Use: Rarely Drug Use: None General Adult EDM: Chief Complaint: EYE PROBLEMS HPI: HPI: Patient is a 36 year old female coming in for bilateral eye pain and redness. This is had small amount of discharge and tearing. Patient was recently seen and evaluated for upper respiratory infection states she has been getting better. Patient denies any trauma to her eyes, medications, or use of contacts. Patient states she does not have any vision changes or photophobia, no pain with eye movements. States her mother and son are at home with similar symptoms, son was recently started antibiotic ointment for conjunctivitis Review of Systems: Review of Systems: All other systems within normal limits except for as noted in the HPI Allergies: Allergies: Allergies Coded Allergies Type Severity Reaction Last Updated Verified No Known Drug Allergies 03/25/18 No Physical Exam: PE: Constitutional: Well developed, well nourished, no acute distress, non-toxic appearance. [] HENT: Normocephalic, atraumatic, bilateral external ears normal, nose normal. [] Eyes: PERRLA, mild injection of bilateral conjunctiva, extraocular was intact, small amount of dried crusting to eyelashes Neck: No rigidity, supple, no stridor. [] Cardiovascular: Regular rate and rhythm, brisk cap refill [] Lungs & Thorax: Non labored symmetric respirations, no tachypnea or respiratory distress [] Abdomen: Soft, nondistended. Skin: Warm, dry, no erythema, no rash. [] Back: Unremarkable Extremities: No deformities, range of motion grossly intact, no lower extremity edema [] Neurologic: Alert and oriented X 3, no focal deficits noted. [] Psychologic: Affect normal, judgement normal, mood normal. [] EKG: EKG: [] Heart Score: C/O Chest Pain: No Risk Factors: Risk Factors: DM, Current or recent (<one month) smoker, HTN, HLP, family history of CAD, obesity. Risk Scores: Score 0 - 3: 2.5% MACE over next 6 weeks - Discharge Home Score 4 - 6: 20.3% MACE over next 6 weeks - Admit for Clinical Observation Score 7 - 10: 72.7% MACE over next 6 weeks - Early Invasive Strategies Radiology/Procedures: Radiology/Procedures: [] Course & Med Decision Making: Course & Med Decision Making Pertinent Labs and Imaging studies reviewed. (See chart for details) [] Dragon Disclaimer: Dragon Disclaimer: This electronic medical record was generated, in whole or in part, using a voice recognition dictation system. Departure Departure Impression: Primary Impression: Bilateral conjunctivitis Disposition: HOME / SELF CARE / HOMELESS Condition: STABLE Referrals: NO PCP (PCP) Patient Instructions: Conjunctivitis (Viral and Bacterial) Additional Instructions: Polytrim eyedrops: 2 drops in each eye every 6 hours for 7 days MARY BACON MD Jul 20, 2021 04:28
[2021-07-20] MEDS ORDERED: POLYMYXIN/TRIMETHOPRIM OPHTH SOLUTION 10ML BOTTLE. OU ONE (05:00)
== END 2021-07-20 04:55 | disposition home or self-care (01) ==
LOC: ER 03:35
DX: H10.9 Unspecified conjunctivitis (principal); Z98.890 Other specified postprocedural states
CPT/HCPCS: 99282

== ENCOUNTER 2021-09-21 21:23 | Emergency (ER) | payer OTHER ==
[~2021-09-21] VITALS: Ht 165.1 cm; Wt 82.0 kg
[2021-09-21 21:47] VITALS: BP 114/70
--- NOTE | 2021-09-21 22:01 | PHYS DOC ---
Past Medical History Past Medical History: No Pertinent History Past Surgical History: Other Additional Past Surgical Histo: JOINT Smoking Status: Never Smoker Alcohol Use: None Drug Use: None General Adult EDM: Chief Complaint: FINGER INJURY HPI: HPI: Patient is a 36 year old female presents for wound evaluation. Patient had tendon repair surgery on on left middle finger in May. Shortly after postoperative. Patient noticed a firm soft tissue to density of her left middle might be infected. Just distal to the DIP on the anterior surface. Patient denies any associated pain. Patient concerned that this area might be an abscess or infection. Over the last few days patient has also noticed some drainage along the cuticle and the nailbed. At the site patient had a button placed. Over the last few days patient has pressed on the nail and has expressed some drainage. On exam I think this is consistent with a paronychia. Regarding to soft tissue density anterior aspect finger advised patient that this is probably postoperative changes recommend follow-up with her hand surgeon. No intervention or treatment at this time. Regarding the paronychia I I suggested incision and drainage. Patient chose against that. She states she had just finished antibiotics and she would like to follow-up with her hand surgeon. Patient has full range of motion of all fingers her fingers are neurovascularly intact cap refill less than 2 seconds. Review of Systems: Review of Systems: Constitutional: Denies fever or chills. [] Eyes: Denies change in visual acuity. [] HENT: Denies nasal congestion or sore throat. [] Respiratory: Denies cough or shortness of breath. [] Cardiovascular: Denies chest pain or edema. [] GI: Denies abdominal pain, nausea, vomiting, bloody stools or diarrhea. [] : Denies dysuria. [] Musculoskeletal: Denies back pain or joint pain. [] Integument: Denies rash. [] Neurologic: Denies headache, focal weakness or sensory changes. [] Endocrine: Denies polyuria or polydipsia. [] Lymphatic: Denies swollen glands. [] Psychiatric: Denies depression or anxiety. [] Heart Score: C/O Chest Pain: N/A Risk Factors: Risk Factors: DM, Current or recent (<one month) smoker, HTN, HLP, family history of CAD, obesity. Risk Scores: Score 0 - 3: 2.5% MACE over next 6 weeks - Discharge Home Score 4 - 6: 20.3% MACE over next 6 weeks - Admit for Clinical Observation Score 7 - 10: 72.7% MACE over next 6 weeks - Early Invasive Strategies Allergies: Allergies: Allergies Coded Allergies Type Severity Reaction Last Updated Verified No Known Drug Allergies 09/21/21 No Physical Exam: PE: General: alert, no acute distress. Skin: warm, dry and intact, no erythema, no rash. Swelling subungual discoloration whiteness of the left middle finger. HENT: bilateral external ears normal, oropharynx moist, nose normal. Head:: Normocephalic, atraumatic. Neck: Trachea midline. Eyes: EOMI, Normal conjunctiva, No drainage CARDIOVASCULAR: Regular rate and rhythm RESPIRATORY: No respiratory distress Back: Full range of motion. MUSCULOSKELETAL: Full range of motion of bilateral upper and lower extremities. GASTROINTESTINAL: Abdomen soft without rebound or guarding. NEUROLOGICAL: Alert and noted to person, place and time. No neurological deficits observed Psychiatric: Cooperative. Normal judgment Current Patient Data: Vital Signs: Vital Signs Date Time Temp Pulse Resp B/P (MAP) Pulse Ox O2 Delivery O2 Flow Rate FiO2 09/21/21 21:29 98.4 93 16 123/81 (95) 99 Room Air 98.4 EKG: EKG: [] Radiology/Procedures: Radiology/Procedures: [] Course & Med Decision Making: Course & Med Decision Making Pertinent Labs and Imaging studies reviewed. (See chart for details) [] Dragon Disclaimer: Dragon Disclaimer: This electronic medical record was generated, in whole or in part, using a voice recognition dictation system. Departure Departure Impression: Primary Impression: Post-operative state Additional Impression: Paronychia of finger Disposition: 01 HOME / SELF CARE / HOMELESS Condition: STABLE Referrals: NO PCP (PCP) Patient Instructions: Paronychia Additional Instructions: Recommend follow up with hand surgery. SAMMIE SHETTY DO Sep 21, 2021 22:01
== END 2021-09-21 22:13 | disposition home or self-care (01) ==
LOC: ER 22:09
DX: L76.82 Other postprocedural complications of skin and subcutaneous tissue (principal); L03.012 Cellulitis of left finger; Y84.8 Other medical procedures as the cause of abnormal reaction of the patient, or of later complication, without mention of misadventure at the time of the procedure; Y92.89 Other specified places as the place of occurrence of the external cause
CPT/HCPCS: 99281

== ENCOUNTER 2021-10-22 18:29 | Emergency (ER) | payer OTHER ==
[~2021-10-22] VITALS: Ht 165.1 cm; Wt 82.8 kg
[2021-10-22 20:38] VITALS: BP 140/97
[2021-10-22] MEDS ORDERED: DIPHTH,PERTUSS(ACELL),TET TOX 0.5 ML DISP.SYRIN. VAX IM ONE (22:00)
[2021-10-22] MEDS ORDERED: LIDOCAINE 1%/EPI 1:100,000 20 ML VIAL. INJ ONE (22:00)
[2021-10-22] MEDS ORDERED: HYDROcodone/APAP 5/325MG 1 TAB TABLET PO ONE (22:00)
--- NOTE | 2021-10-22 22:15 | PHYS DOC ---
Past Medical History Past Medical History: No Pertinent History (DARIAN CASTRO Molly [employer]OVEMENT LEAD) Past Surgical History: , Other Additional Past Surgical Histo: TENDON REPAIR (DARIAN CASTRO Molly [employer]OVEMENT LEAD) Smoking Status: Never Smoker Alcohol Use: None Drug Use: None (DARIAN CASTRO Molly RAMÍREZ) General Adult EDM: Chief Complaint: ABSCESS HPI: HPI: Patient is a 36 year old female with history of abscesses presenting today complaining of bilateral axilla abscesses, symptoms began "a couple days ago". Patient states she was able to drain the right axilla abscess but not the left one. Denies any fever. (DARIAN CASTRO CONTINUOUS IMPROVEMENT LEAD) Review of Systems: Review of Systems: Constitutional: Denies fever or chills. [] Musculoskeletal: Denies back pain or joint pain. [] Integument: Reports bilateral axilla abscesses Neurologic: Denies headache, focal weakness or sensory changes. [] Endocrine: Denies polyuria or polydipsia. [] Psychiatric: Denies depression or anxiety. [] (DARIAN CASTRO Molly [employer] LEAD) Heart Score: C/O Chest Pain: N/A Risk Factors: Risk Factors: DM, Current or recent (<one month) smoker, HTN, HLP, family history of CAD, obesity. Risk Scores: Score 0 - 3: 2.5% MACE over next 6 weeks - Discharge Home Score 4 - 6: 20.3% MACE over next 6 weeks - Admit for Clinical Observation Score 7 - 10: 72.7% MACE over next 6 weeks - Early Invasive Strategies (DARIAN CASTRO Molly [employer]OVEMENT LEAD) Current Medications: Current Medications Medications (Trade) Dose Ordered Sig/Angela Start Time Stop Time Status Last Admin Dose Admin Acetaminophen/ Hydrocodone Bitart (Lortab 5/325) 2 tab 1X ONCE 10/22/21 22:00 10/22/21 22:01 DC Diphtheria/ Tetanus/Acell Pertussis (Boostrix) 0.5 ml ONCE ONCE 10/22/21 22:00 10/22/21 22:01 DC Lidocaine/ Epinephrine (LIDOCAINE 1%-EPI 1:100,000 Multi-Dose) 20 ml 1X ONCE 10/22/21 22:00 10/22/21 22:01 DC (MATTHEWDARIAN Molly [employer]OVEMENT LEAD) Allergies: Allergies: Allergies Coded Allergies Type Severity Reaction Last Updated Verified No Known Drug Allergies 2/4/22 No (DARIAN CASTRO APRN) Physical Exam: PE: Constitutional: Well developed, well nourished, no acute distress, non-toxic appearance. [] Skin: Left axilla with an egg size abscess with moderate tenderness, warm to touch, no drainage. Right axilla with an indurated area roughly 3 x 2 cm, the area is firm tender to touch, the area is warm, appears to have been drained but still has more pus in it Back: No tenderness, no CVA tenderness. [] Extremities: No tenderness, no cyanosis, no clubbing, ROM intact, no edema. [] Neurologic: Alert and oriented X 3, normal motor function, normal sensory function, no focal deficits noted. [] Psychologic: Affect normal, judgement normal, mood normal. [] (DARIAN CASTRO APRN) Current Patient Data: Vital Signs: Vital Signs Date Time Temp Pulse Resp B/P (MAP) Pulse Ox O2 Delivery O2 Flow Rate FiO2 10/22/21 20:38 99.0 97 18 140/97 (111) 100 Room Air 99.0 (DARIAN CASTRO APRN) EKG: EKG: [] (DARIAN CASTRO APRN) Radiology/Procedures: Radiology/Procedures: [] (DARIAN CASTRO APRN) Course & Med Decision Making: Course & Med Decision Making Pertinent Labs and Imaging studies reviewed. (See chart for details) This a 36-year-old female patient presenting to the ED today with bilateral axilla abscesses. The right 1 is very large. I offered to drain these abscesses. Patient has moved back and forth between years drain then now or don't drain it we have done this several times. She finally decided she does not want them drained. Given tetanus. Given Bactrim and cephalexin for home use. Warm compresses recommended. Provided general surgeon for the follow-up (DARIAN CASTRO APRN) Course & Med Decision Making Patients Care and treatment plan provided by ER Nurse Practitioner. I was not involved in this patients care but was available for consult. Patient's chart reviewed. (SAMMIE SHETTY DO) Silvio Disclaimer: Dragon Disclaimer: This electronic medical record was generated, in whole or in part, using a voice recognition dictation system. (DARIAN CASTRO APRN) Departure Departure Impression: Primary Impression: Abscess of axilla, right Additional Impression: Abscess of axilla, left Disposition: 01 HOME / SELF CARE / HOMELESS Condition: STABLE Referrals: NO PCP (PCP) ZAKIA PACE MD follow up in 1 week Patient Instructions: Abscess Additional Instructions: You have bilateral axilla abscesses. Please apply warm compresses to the areas 3 times a day for 10 days. Take the prescribed antibiotics until completed. Follow-up with the provided general surgeon in the next 1 week Scripts Hydrocodone Bit/Acetaminophen (HYDROCODONE-APAP 5-325 ) 1 Tab Tablet 1 TAB PO PRN Q6HRS PRN for PAIN, #14 TAB 0 Refills Prov: DARIAN CASTRO APRN 10/22/21 Cephalexin (CEPHALEXIN) 500 Mg Tablet 1 TAB PO TID, #30 TAB Prov: DARIAN CASTRO APRN 10/22/21 Sulfamethoxazole/Trimethoprim (BACTRIM 400-80 MG TABLET) 1 Each Tablet 1 TAB PO BID for 10 Days, #20 TAB 0 Refills Prov: DARIAN CASTRO APRN 10/22/21 DARIAN CASTRO APRN Oct 22, 2021 22:15 SAMMIE SHETTY DO Oct 23, 2021 18:08
[2021-10-22] MEDS ORDERED: HYDR-2761 PO (22:30)
[2021-10-22] MEDS ORDERED: SULF1TAB23 PO (22:30)
[2021-10-22] MEDS ORDERED: CEPH500T PO (22:30)
== END 2021-10-22 22:46 | disposition home or self-care (01) ==
LOC: ER 18:29
DX: L02.411 Cutaneous abscess of right axilla (principal); L02.412 Cutaneous abscess of left axilla
CPT/HCPCS: 90471; 90715; 99283-25

== ENCOUNTER 2021-12-23 09:53 | Emergency (ER) | payer OTHER ==
[~2021-12-23] VITALS: Ht 165.1 cm; Wt 80.3 kg
[~2021-12-23 09:53] MED LIST changes: +CEPH500T PO; +HYDR-2761 PO; +SULF1TAB23 PO
[2021-12-23 11:50] LABS: BASO % 1 % (0-3); EOS # 0.1 x10^3/uL (0.0-0.7); EOS % 1 % (0-3); HEMATOCRIT 34.1 % (36.0-47.0); HEMOGLOBIN 11.3 g/dL (12.0-15.5); LYMPH # 1.4 x10^3/uL (1.0-4.8); LYMPH % 33 % (24-48); MEAN CORPUSCULAR HEMOGLOBIN 31 pg (25-35); MEAN CORPUSCULAR HGB CONC 33 g/dL (31-37); MEAN CORPUSCULAR VOLUME 94 fL (79-100); MONO # 0.3 x10^3/uL (0.0-1.1); MONO % 6 % (0-9); NEUT # 2.5 x10^3/uL (1.8-7.7); NEUT % 59 % (31-73); PLATELET COUNT 195 x10^3/uL (140-400); RED BLOOD COUNT 3.63 x10^6/uL (3.50-5.40); RED CELL DISTRIBUTION WIDTH 14.3 % (11.5-14.5); WHITE BLOOD COUNT 4.2 x10^3/uL (4.0-11.0)
[2021-12-23 12:00] LABS: CALCIUM 8.4 mg/dL (8.5-10.1); CREATININE 0.8 mg/dL (0.6-1.0); GFR 97.1; POTASSIUM 4.4 mmol/L (3.5-5.1)
--- NOTE | 2021-12-23 14:02 | PHYS DOC ---
Past Medical History Past Medical History: No Pertinent History Past Surgical History: , Other Additional Past Surgical Histo: TENDON REPAIR Smoking Status: Former Smoker Alcohol Use: None Drug Use: None General Adult EDM: Chief Complaint: OTHER COMPLAINTS HPI: HPI: 36-year-old female presents with tingling in her hands and slight lightheadedness. No significant past medical history. She states that a month ago she had some memory impairment issues which resolved on their own. She had a CT scan done at that time which was unremarkable. She has no other medical history. She is not currently on any medications. No LOC. No chest pain or shortness of breath. No history of DVT or PE. No history of ALS or MS. no family history of severe neurological issues. No difficulty with ambulation. She has not walking into any valerio. She denies any strength or sensation loss in her upper or lower extremities. Review of Systems: Review of Systems: Constitutional: Positive for lightheadedness Eyes: Denies change in visual acuity. [] HENT: Denies nasal congestion or sore throat. [] Respiratory: Denies cough or shortness of breath. [] Cardiovascular: Denies chest pain or edema. [] GI: Denies abdominal pain, nausea, vomiting, bloody stools or diarrhea. [] : Denies dysuria. [] Musculoskeletal: Denies back pain or joint pain. [] Integument: Denies rash. [] Neurologic: Denies headache, focal weakness or sensory changes. [] Endocrine: Denies polyuria or polydipsia. [] Lymphatic: Denies swollen glands. [] Psychiatric: Denies depression or anxiety. [] Heart Score: C/O Chest Pain: No Risk Factors: Risk Factors: DM, Current or recent (<one month) smoker, HTN, HLP, family history of CAD, obesity. Risk Scores: Score 0 - 3: 2.5% MACE over next 6 weeks - Discharge Home Score 4 - 6: 20.3% MACE over next 6 weeks - Admit for Clinical Observation Score 7 - 10: 72.7% MACE over next 6 weeks - Early Invasive Strategies Allergies: Allergies: Allergies Coded Allergies Type Severity Reaction Last Updated Verified No Known Drug Allergies 09/21/21 No Physical Exam: PE: Constitutional: Well developed, well nourished, no acute distress, non-toxic appearance. [] HENT: Normocephalic, atraumatic, bilateral external ears normal, oropharynx moist, no oral exudates, nose normal. [] Eyes: PERRLA, EOMI, conjunctiva normal, no discharge. [] Neck: Normal range of motion, no tenderness, supple, no stridor. [] Cardiovascular:Heart rate regular rhythm, no murmur [] Lungs & Thorax: Bilateral breath sounds clear to auscultation [] Abdomen: Bowel sounds normal, soft, no tenderness, no masses, no pulsatile ma sses. [] Skin: Warm, dry, no erythema, no rash. [] Back: No tenderness, no CVA tenderness. [] Extremities: No tenderness, no cyanosis, no clubbing, ROM intact, no edema. [] Neurologic: Alert and oriented X 3, normal motor function, normal sensory function, no focal deficits noted. No pronator drift bilateral, negative Romberg, intact sensation and strength in upper and lower extremities [] Psychologic: Affect normal, judgement normal, mood normal. [] Current Patient Data: Labs: Laboratory Tests Test 12/23/21 11:16 12/23/21 11:42 POC Urine HCG, Qualitative Hcg negative (Negative) White Blood Count 4.2 x10^3/uL (4.0-11.0) Red Blood Count 3.63 x10^6/uL (3.50-5.40) Hemoglobin 11.3 g/dL (12.0-15.5) L Hematocrit 34.1 % (36.0-47.0) L Mean Corpuscular Volume 94 fL (79-100) Mean Corpuscular Hemoglobin 31 pg (25-35) Mean Corpuscular Hemoglobin Concent 33 g/dL (31-37) Red Cell Distribution Width 14.3 % (11.5-14.5) Platelet Count 195 x10^3/uL (140-400) Neutrophils (%) (Auto) 59 % (31-73) Lymphocytes (%) (Auto) 33 % (24-48) Monocytes (%) (Auto) 6 % (0-9) Eosinophils (%) (Auto) 1 % (0-3) Basophils (%) (Auto) 1 % (0-3) Neutrophils # (Auto) 2.5 x10^3/uL (1.8-7.7) Lymphocytes # (Auto) 1.4 x10^3/uL (1.0-4.8) Monocytes # (Auto) 0.3 x10^3/uL (0.0-1.1) Eosinophils # (Auto) 0.1 x10^3/uL (0.0-0.7) Basophils # (Auto) 0.0 x10^3/uL (0.0-0.2) Sodium Level 140 mmol/L (136-145) Potassium Level 4.4 mmol/L (3.5-5.1) Chloride Level 108 mmol/L (98-107) H Carbon Dioxide Level 25 mmol/L (21-32) Anion Gap 7 (6-14) Blood Urea Nitrogen 13 mg/dL (7-20) Creatinine 0.8 mg/dL (0.6-1.0) Estimated GFR (Cockcroft-Gault) 97.1 Glucose Level 92 mg/dL (70-99) Calcium Level 8.4 mg/dL (8.5-10.1) L Laboratory Tests 12/23/21 11:42 Laboratory Tests 12/23/21 11:42 Vital Signs: Vital Signs Date Time Temp Pulse Resp B/P (MAP) Pulse Ox O2 Delivery O2 Flow Rate FiO2 12/23/21 11:01 98.4 78 16 132/86 (101) 100 Room Air 98.4 EKG: EKG: [] Radiology/Procedures: Radiology/Procedures: [] Course & Med Decision Making: Course & Med Decision Making Pertinent Labs and Imaging studies reviewed. (See chart for details) [] Dragon Disclaimer: Dragon Disclaimer: This electronic medical record was generated, in whole or in part, using a voice recognition dictation system. Departure Departure Impression: Primary Impression: Paresthesia Disposition: HOME / SELF CARE / HOMELESS Condition: IMPROVED Referrals: NO PCP (PCP) Patient Instructions: Paresthesia, [id number] Additional Instructions: Please continue to hydrate aggressively with water and follow-up with your primary care physician and see a neurologist if your symptoms do not resolve soon JACQUE HATFIELD MD December 23, 2021 14:02
[2021-12-23 14:04] VITALS: BP 112/68
== END 2021-12-23 14:08 | disposition home or self-care (01) ==
LOC: ER 09:53
DX: R20.2 Paresthesia of skin (principal); R42 Dizziness and giddiness
CPT/HCPCS: 36415; 80048; 81025; 85025; 99285